=== PATIENT | male | born 1995 | race Caucasian/White ===

== ENCOUNTER 2016-10-04 21:24 | Emergency (ER) | payer OTHER | END 2016-10-04 23:40 | disposition home or self-care (01) | LOC: ER 21:24 | DX: L03.115 Cellulitis of right lower limb (principal); F90.9 Attention-deficit hyperactivity disorder, unspecified type | CPT/HCPCS: 96374; J3370 ==

== ENCOUNTER 2016-10-06 10:02 | Emergency (ER) | payer OTHER | END 2016-10-06 11:15 | disposition home or self-care (01) | LOC: ER 10:02 | DX: L03.115 Cellulitis of right lower limb (principal); F90.9 Attention-deficit hyperactivity disorder, unspecified type | CPT/HCPCS: 96365; J3370 ==